=== PATIENT | male | born 1970 | race Caucasian/White ===

== ENCOUNTER 2018-12-05 11:55 | Emergency (ER) | payer BC ==
[2018-12-05] MEDS ORDERED: Ketorolac 30 MG/ML SDV IM ONE (12:15)
[2018-12-05] MEDS ORDERED: Take Home: Amoxicillin/Clavulanate K 875-125 MG Tab, 2 Tab Pack PO ONE (12:17)
[2018-12-05] MEDS ORDERED: Take Home: Ketorolac 10 MG Tab, 4 Tab Pack PO ONE (12:18)
--- NOTE | 2018-12-05 12:27 | EDM.PDOC ---
ED HPI GENERAL MEDICAL PROBLEM - General Chief Complaint: General Stated Complaint: RIGHT SIDE OF FACE HURTS Time Seen by Provider: 12/05/18 12:00 Source of Information: Reports: Patient History Limitations: Reports: No Limitations - History of Present Illness INITIAL COMMENTS - FREE TEXT/NARRATIVE: Patient comes into the emergency department with right facial pain. Patient states that he has had a fracture tooth for some time. He is noted that the last couple days he's had increase dental pain and severe discomfort in his right ear as well. He also had tubes placed in his ears 3 months ago. He denies any fever but has been taken ibuprofen/Aleve for the last 54 hours a help with any of the pain and discomfort. He is also noted that he has foul smelling breath. He denies any vision changes, chest pain, shortness of breath, headache , or nausea vomiting. 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 Right Face/Facial Pain Score (Numeric/FACES): 10 - Related Data Allergies Allergy/AdvReac Type Severity Reaction Status Date / Time No Known Allergies Allergy Verified 12/05/18 12:09 Home Meds: Home Meds Amoxicillin/Potassium Clav [Augmentin 875-125 Tablet] 1 each PO BID #18 tablet 12/05/18 [Rx] Ketorolac [Toradol] 10 mg PO TID PRN #10 tab 12/05/18 [Rx] ED ROS GENERAL - Review of Systems Review Of Systems: See Below Constitutional: Reports: No Symptoms HEENT: Reports: Dental Pain, Ear Discharge, Ear Pain Respiratory: Reports: No Symptoms Cardiovascular: Reports: No Symptoms Endocrine: Reports: No Symptoms GI/Abdominal: Reports: No Symptoms : Reports: No Symptoms Musculoskeletal: Reports: No Symptoms Skin: Reports: No Symptoms Neurological: Reports: No Symptoms Psychiatric: Reports: No Symptoms Hematologic/Lymphatic: Reports: No Symptoms Immunologic: Reports: No Symptoms ED EXAM, GENERAL - Physical Exam Exam: See Below Exam Limited By: No Limitations General Appearance: Alert, WD/WN, No Apparent Distress Ears: Normal External Exam, Normal Canal, Hearing Grossly Normal Ear Exam: Bilateral Ear: Auricle Normal, Canal Normal, TM normal Nose: Normal Inspection Throat/Mouth: Inflammation, Other (dental decay/carries noted on the right upper mouth. no bleeding noted. Gum tissue inflammation. Foul ordor/breath present. ) Respiratory/Chest: No Respiratory Distress, Normal Breath Sounds Cardiovascular: Normal Peripheral Pulses, Regular Rate, Rhythm, No Edema Neurological: Alert, Oriented, Normal Cognition Psychiatric: Normal Affect, Normal Mood Skin Exam: Warm, Dry, Intact, Normal Color Course - Vital Signs Last Recorded V/S: Last Vital Signs Temp 35.8 C 12/05/18 12:00 Pulse 58 L 12/05/18 12:00 Resp 18 12/05/18 12:00 BP 203/99 H 12/05/18 12:00 Pulse Ox 95 12/05/18 12:00 - Orders/Labs/Meds Meds: Medications Discontinued Medications Generic Name Dose Route Start Last Admin Trade Name Freq PRN Reason Stop Dose Admin Amoxicillin/Clavulanate Potassium 1 packet 12/05/18 12:17 12/05/18 12:34 Take Home: Amox/Clavulanate 875-12, 2 Tab Pac PO 12/05/18 12:18 1 packet ONETIME ONE Administration Ketorolac Tromethamine 30 mg 12/05/18 12:15 12/05/18 12:33 Toradol IM 12/05/18 12:16 30 mg ONETIME ONE Administration Ketorolac Tromethamine 1 packet 12/05/18 12:18 12/05/18 12:34 Take Home: Ketorolac 10 Mg, 4 Tab Pack PO 12/05/18 12:19 1 packet ONETIME ONE Administration Departure - Departure Time of Disposition: 12:30 Disposition: Home, Self-Care 01 Clinical Impression: Dental abscess - Discharge Information *PRESCRIPTION DRUG MONITORING PROGRAM REVIEWED*: Not Applicable *COPY OF PRESCRIPTION DRUG MONITORING REPORT IN PATIENT JOHNNY: Not Applicable Prescriptions: Amoxicillin/Potassium Clav [Augmentin 875-125 Tablet] 1 each PO BID #18 tablet Ketorolac [Toradol] 10 mg PO TID PRN #10 tab PRN Reason: Pain Instructions: Dental Abscess Referrals: PCP,Not In Area [Primary Care Provider] - Forms: ED Department Discharge Additional Instructions: 1. rest 2. need to follow up with dentist within the next 2 weeks for further management and extraction may be needed 3. Take antibiotic for full 10 days 4. Take probiotic while on antibiotics to help with GI health 5. Take Toradol as needed for pain 6. Can take Tylenol as needed for pain-alternate between Toradol 7. Activity and diet as tolerated 8. Call with any questions or concerns
== END 2018-12-05 12:39 | disposition home or self-care (01) ==
LOC: VM.ED 11:55
DX: K04.7 Periapical abscess without sinus (principal)
CPT/HCPCS: 96374; 99283-25; A9270-GY; J1885

== ENCOUNTER 2019-06-30 10:32 | Emergency (ER) | payer BC ==
[2019-06-30] MEDS ORDERED: Sodium Chloride 0.9% 10 ML Syringe FLUSH PRN ×2 (10:46→11:38)
[2019-06-30] MEDS ORDERED: Albuterol/Ipratropium 3.0-0.5 MG/3 ML Neb Soln NEB ONE (10:48)
[2019-06-30] MEDS ORDERED: Aspirin 81 MG Tab.Chew PO ONE (11:00)
[2019-06-30 11:37] LABS: ANION GAP 13.8 mmol/L (10-20); CHLORIDE,CL 104 mmol/L (54-184); SODIUM,NA 140 mmol/L (69-191)
--- NOTE | 2019-06-30 11:37 | EDM.PDOC ---
ED HPI GENERAL MEDICAL PROBLEM - General Chief Complaint: Chest Pain Stated Complaint: CHEST DISCOMFORT Time Seen by Provider: 06/30/19 11:05 Source of Information: Reports: Patient History Limitations: Reports: No Limitations - History of Present Illness INITIAL COMMENTS - FREE TEXT/NARRATIVE: Pt. presents to ER with complaints of chest pain and shortness of breath. He states that he has been experiencing it for approx. 3 days. It got worse today when he was shoveling snow. He has had a cough that has been productive of yellowish sputum. He states that he has noticed a wheeze when he takes a deep breath. The discomfort is worse with movement and is respirophasic in nature. Denies any other ill contacts. He also complains of some paresthesia and discomfort in his L arm. He denies any jaw, neck or back pain. He denies any nausea of vomiting. No lightheadedness or palpitations. Pt. states that he smokes half a pack of cigarettes a day and has done so for the past 20+ years. He has a history of "borderline" hypertension but is not currently taking any medications. Pt. states that he called Ask a Nurse yesterday who advised he be seen in ER right away. He felt the pain was secondary to a respiratory infection and decided to come in today after having increased discomfort shoveling. Onset Date: 06/27/19 Quality: Reports: Ache, Burning, Pressure Severity: Moderate Associated Symptoms: Reports: Chest Pain Mid-Sternal Chest Pain Score (Numeric/FACES): 4 - Related Data Allergies Allergy/AdvReac Type Severity Reaction Status Date / Time No Known Allergies Allergy Verified 06/30/19 11:03 Home Meds: Home Meds . [No Known Home Meds] 06/30/19 [History] Past Medical History - Past Surgical History HEENT Surgical History: Reports: Myringotomy w Tube(s) Musculoskeletal Surgical History: Reports: Arthroscopic Knee ED ROS GENERAL - Review of Systems Review Of Systems: See Below Constitutional: Reports: No Symptoms HEENT: Reports: No Symptoms Respiratory: Reports: Shortness of Breath, Wheezing Cardiovascular: Reports: Chest Pain, Dyspnea on Exertion. Denies: Edema, Lightheadedness, Palpitations, Syncope Endocrine: Reports: No Symptoms GI/Abdominal: Reports: No Symptoms : Reports: No Symptoms Musculoskeletal: Reports: No Symptoms Skin: Reports: No Symptoms Neurological: Reports: No Symptoms Psychiatric: Reports: No Symptoms Hematologic/Lymphatic: Reports: No Symptoms Immunologic: Reports: No Symptoms ED EXAM, GENERAL - Physical Exam Exam: See Below Exam Limited By: No Limitations General Appearance: Alert, WD/WN, No Apparent Distress Throat/Mouth: Normal Inspection, Normal Lips, Normal Teeth, Normal Gums, Normal Oropharynx, Normal Voice, No Airway Compromise Head: Atraumatic, Normocephalic Neck: Normal Inspection, Supple, Non-Tender, Full Range of Motion Respiratory/Chest: No Respiratory Distress, Normal Breath Sounds, No Accessory Muscle Use, Wheezing Cardiovascular: Normal Peripheral Pulses, Regular Rate, Rhythm, No Edema, No JVD , No Rub Peripheral Pulses: 4+: Radial (L) GI/Abdominal: Normal Bowel Sounds, Soft, Non-Tender, No Organomegaly, No Distention, No Mass, Pelvis Stable (Male) Exam: Deferred Rectal (Males) Exam: Deferred Back Exam: Normal Inspection, Full Range of Motion Extremities: Normal Inspection, Normal Range of Motion, Non-Tender, No Pedal Edema, Normal Capillary Refill Neurological: Alert, Oriented, CN II-XII Intact, Normal Cognition, Normal Gait, Normal Reflexes, No Motor/Sensory Deficits Psychiatric: Normal Affect, Normal Mood Skin Exam: Warm, Dry, Intact, Normal Color, No Rash EKG INTERPRETATION Rhythm: NSR Naper: Normal P-Wave: Present QRS: Normal ST-T: Normal QT: Normal Course - Vital Signs Last Recorded V/S: Last Vital Signs Temp 36.6 C 06/30/19 10:40 Pulse 59 L 06/30/19 11:05 Resp 16 06/30/19 11:05 BP 174/99 H 06/30/19 11:54 Pulse Ox 99 06/30/19 11:05 - Orders/Labs/Meds Orders: Active Orders 24 hr Category Date Time Status EKG Documentation Completion [RC] STAT Care 06/30/19 10:46 Active RT Aerosol Therapy [RC] ASDIRECTED Care 06/30/19 10:48 Active Heparin Sodium/0.45% NaCl [Heparin 25,000 Units in 1/2 Med 06/30/19 11:45 Ordered NS 500 ML] 25,000 units in 500 ml IV TITRATE Nitroglycerin 25 MG in D5W @ 10 MCG/MIN (250ml) Premix Med 06/30/19 12:15 Ordered Nitroglycerin/D5W [Nitroglycerin 25 MG/D5W 250 ML] 25 mg in 250 ml IV TITRATE Sodium Chloride 0.9% [Saline Flush] Med 06/30/19 10:46 Active 10 ml FLUSH ASDIRECTED PRN Sodium Chloride 0.9% [Saline Flush] Med 06/30/19 11:38 Ordered 10 ml FLUSH ASDIRECTED PRN Peripheral IV Insertion Adult [OM.PC] Routine Oth 06/30/19 10:46 Ordered Peripheral IV Insertion Adult [OM.PC] Routine Oth 06/30/19 11:39 Ordered Medication Orders Heparin Sodium/Sodium Chloride (Heparin 25,000 Units In 1/2 Ns 500 Ml) 25,000 units in 500 mls @ 20 mls/hr IV TITRATE KATINA; Protocol Sodium Chloride (Saline Flush) 10 ml FLUSH ASDIRECTED PRN PRN Reason: Keep Vein Open Sodium Chloride (Saline Flush) 10 ml FLUSH ASDIRECTED PRN PRN Reason: Keep Vein Open Labs: Laboratory Tests 06/30/19 06/30/19 06/30/19 Range/Units 10:52 10:52 10:52 WBC 11.7 H (4.0-10.0) x10^3/uL RBC 5.05 (4.5-6.0) x10^6/uL Hgb 15.5 (14.0-18.0) g/dL Hct 44.3 (40.0-52.0) % MCV 87.7 (78.0-93.0) fL MCH 30.7 (26.0-32.0) pg MCHC 35.0 (32.0-36.0) g/dL RDW Coeff of Jimmy 13.2 (10.0-15.0) % Plt Count 174 (130-400) x10^3/uL Add Manual Diff Yes Neutrophils % (Manual) 75 (50-80) % Band Neutrophils % 1 (0-6) % Lymphocytes % (Manual) 16 L (25-50) % Monocytes % (Manual) 6 (2-11) % Eosinophils % (Manual) 2 (0-4) % Platelet Estimate Adequate Giant Platelets Few H Anisocytosis 1+ slight H PT 11.2 (10.0-12.8) SEC INR 1.0 L (2.0-3.5) APTT (24.0-36.0) SEC D-Dimer, Quantitative 0.28 (<=0.58) mg/LFEU Sodium 140 (69-191) mmol/L Potassium 3.8 (1.5-9.9) mmol/L Chloride 104 (54-184) mmol/L Carbon Dioxide 26 (21-32) mmol/L Anion Gap 13.8 (10-20) mmol/L BUN 16 (7-18) mg/dL Creatinine 1.1 (0.70-1.30) mg/dL Est Cr Clr Drug Dosing TNP Estimated GFR (MDRD) > 60 Glucose 118 H (74-106) mg/dL Calcium 8.6 (8.5-10.1) mg/dL Corrected Calcium 8.84 (8.5-10.1) mg/dL Magnesium 1.8 (1.8-2.4) mg/dL Total Bilirubin 0.5 (0.2-1.0) mg/dL AST 31 (15-37) U/L ALT 49 (16-63) U/L Alkaline Phosphatase 112 (46-116) U/L Troponin I 1.052 H* (<=0.056) ng/mL C-Reactive Protein < 0.2 (<=0.9) mg/dL Total Protein 7.7 (6.4-8.2) g/dL Albumin 3.7 (3.4-5.0) g/dL Globulin 4.0 Albumin/Globulin Ratio 0.93 //19 Range/Units 10:52 WBC (4.0-10.0) x10^3/uL RBC (4.5-6.0) x10^6/uL Hgb (14.0-18.0) g/dL Hct (40.0-52.0) % MCV (78.0-93.0) fL MCH (26.0-32.0) pg MCHC (32.0-36.0) g/dL RDW Coeff of Jimmy (10.0-15.0) % Plt Count (130-400) x10^3/uL Add Manual Diff Neutrophils % (Manual) (50-80) % Band Neutrophils % (0-6) % Lymphocytes % (Manual) (25-50) % Monocytes % (Manual) (2-11) % Eosinophils % (Manual) (0-4) % Platelet Estimate Giant Platelets Anisocytosis PT (10.0-12.8) SEC INR (2.0-3.5) APTT 24.9 (24.0-36.0) SEC D-Dimer, Quantitative (<=0.58) mg/LFEU Sodium (69-191) mmol/L Potassium (1.5-9.9) mmol/L Chloride (54-184) mmol/L Carbon Dioxide (21-32) mmol/L Anion Gap (10-20) mmol/L BUN (7-18) mg/dL Creatinine (0.70-1.30) mg/dL Est Cr Clr Drug Dosing Estimated GFR (MDRD) Glucose (74-106) mg/dL Calcium (8.5-10.1) mg/dL Corrected Calcium (8.5-10.1) mg/dL Magnesium (1.8-2.4) mg/dL Total Bilirubin (0.2-1.0) mg/dL AST (15-37) U/L ALT (16-63) U/L Alkaline Phosphatase (46-116) U/L Troponin I (<=0.056) ng/mL C-Reactive Protein (<=0.9) mg/dL Total Protein (6.4-8.2) g/dL Albumin (3.4-5.0) g/dL Globulin Albumin/Globulin Ratio Meds: Medications Generic Name Dose Route Start Last Admin Trade Name Freq PRN Reason Stop Dose Admin Heparin Sodium/Sodium Chloride 25,000 units in 500 mls @ 20 mls/hr 06/30/19 11 :45 Heparin 25,000 Units In 1/2 Ns 500 Ml IV TITRATE KATINA Protocol 1,000 UNITS/HR Sodium Chloride 10 ml 06/30/19 10:46 Saline Flush FLUSH ASDIRECTED PRN Keep Vein Open Sodium Chloride 10 ml 06/30/19 11:38 Saline Flush FLUSH ASDIRECTED PRN Keep Vein Open Discontinued Medications Generic Name Dose Route Start Last Admin Trade Name Freq PRN Reason Stop Dose Admin Albuterol/Ipratropium 3 ml 06/30/19 10:48 06/30/19 11:01 Duoneb 3.0-0.5 Mg/3 Ml NEB 06/30/19 10:49 3 ml ONETIME ONE Administration Aspirin 324 mg 06/30/19 11:00 06/30/19 11:02 Aspirin PO 06/30/19 11:01 324 mg ONETIME ONE Administration Clopidogrel Bisulfate 300 mg 06/30/19 11:57 Plavix PO 06/30/19 11:58 ONETIME ONE Heparin Sodium (Porcine) 4,000 units 06/30/19 11:39 06/30/19 11:54 Heparin Sodium IVPUSH 06/30/19 11:40 4,000 units .BOLUS ONE Administration Nitroglycerin 0.4 mg 06/30/19 11:39 06/30/19 11:54 Nitrostat SL 06/30/19 11:40 0.4 mg ONETIME ONE Administration - Radiology Interpretation Free Text/Narrative:: chest x-ray is negative - Re-Assessments/Exams Free Text/Narrative Re-Assessment/Exam: Pt. was given aspirin 324mg PO. IV established x 2. He was given heparin 4000U bolus and started on 1000U/hr. drip. Chest pain was decreased with nitro. He was started on a nitro drip. He was given plavix 300mg PO. Departure - Departure Time of Disposition: 12:00 Disposition: DC/Tfer to Acute Hospital 02 Clinical Impression: NSTEMI (non-ST elevated myocardial infarction) - Discharge Information Referrals: PCP,Unknown [Primary Care Provider] - Forms: ED Department Discharge - Problem List Review Problem List Initiated/Reviewed/Updated: Yes - My Orders Last 24 Hours: My Active Orders 06/30/19 10:46 EKG Documentation Completion [RC] STAT Sodium Chloride 0.9% [Saline Flush] 10 ml FLUSH ASDIRECTED PRN Peripheral IV Insertion Adult [OM.PC] Routine 06/30/19 10:48 RT Aerosol Therapy [RC] ASDIRECTED 06/30/19 11:38 Sodium Chloride 0.9% [Saline Flush] 10 ml FLUSH ASDIRECTED PRN 06/30/19 11:39 Peripheral IV Insertion Adult [OM.PC] Routine 06/30/19 11:45 Heparin Sodium/0.45% NaCl [Heparin 25,000 Units in 1/2 NS 500 ML] 25,000 units in 500 ml IV TITRATE 06/30/19 12:15 Nitroglycerin 25 MG in D5W @ 10 MCG/MIN (250ml) Premix Nitroglycerin/D5W [ Nitroglycerin 25 MG/D5W 250 ML] 25 mg in 250 ml IV TITRATE - Assessment/Plan Last 24 Hours: My Active Orders 06/30/19 10:46 EKG Documentation Completion [RC] STAT Sodium Chloride 0.9% [Saline Flush] 10 ml FLUSH ASDIRECTED PRN Peripheral IV Insertion Adult [OM.PC] Routine 06/30/19 10:48 RT Aerosol Therapy [RC] ASDIRECTED 06/30/19 11:38 Sodium Chloride 0.9% [Saline Flush] 10 ml FLUSH ASDIRECTED PRN 06/30/19 11:39 Peripheral IV Insertion Adult [OM.PC] Routine 06/30/19 11:45 Heparin Sodium/0.45% NaCl [Heparin 25,000 Units in 1/2 NS 500 ML] 25,000 units in 500 ml IV TITRATE 06/30/19 12:15 Nitroglycerin 25 MG in D5W @ 10 MCG/MIN (250ml) Premix Nitroglycerin/D5W [ Nitroglycerin 25 MG/D5W 250 ML] 25 mg in 250 ml IV TITRATE Plan: Pt. will be transferred to [facility]. I spoke with Dr. Nunez who accepts the patient in transfer. He will be transported via [facility] ground ambulance. All questions were answered.
[2019-06-30] MEDS ORDERED: Nitroglycerin 0.4 MG Tab.SL SL ONE (11:39)
[2019-06-30] MEDS ORDERED: Heparin Sodium 5,000 Units/ML Vial IVPUSH ONE (11:39)
[2019-06-30] MEDS ORDERED: Heparin Sodium/0.45% NaCl 25,000 UNITS/500 ML BAG IV SCH (11:45)
--- NOTE | 2019-06-30 11:45 | CR ---
[id number] RAD/RAD Chest PA And Lateral EXAM: RAD Chest PA And Lateral INDICATION: SYNCOPE, BRADYCARDIA COMPARISON: None. DISCUSSION: Cardiomediastinal silhouette is stable in size and contour. No infiltrate, effusion, pneumothorax, or edema. IMPRESSION: No acute cardiopulmonary abnormality. Benito Adam DO 06/30/19 1144 Thank you for allowing us to participate in the care of your patient.
[2019-06-30] MEDS ORDERED: Clopidogrel 75 MG Tab PO ONE (11:57)
[2019-06-30] MEDS ORDERED: Nicotine 14 MG/24 Hr Patch TRDERM ONE (12:07)
[2019-06-30] MEDS ORDERED: Nitroglycerin/D5W 25 MG/250 ML BOTTLE IV SCH (12:15)
== END 2019-06-30 12:30 | disposition short-term general hospital (02) ==
LOC: VM.ED 10:32
DX: I21.4 Non-ST elevation (NSTEMI) myocardial infarction (principal)
CPT/HCPCS: 71046; 80053; 83735; 84484; 85025; 85379; 85610; 85730; 86140; 93005; 94640; 96365; 96368; 96375; 99285-25; A9270-GY; J1644; J3490; J7620-GY

== ENCOUNTER 2023-07-08 14:04 | Emergency (ER) | payer BC | END 2023-07-08 15:15 | disposition home or self-care (01) | LOC: VM.ED 14:04 | DX: U07.1 COVID-19 (principal) | CPT/HCPCS: 99284 ==

== ENCOUNTER 2023-07-10 11:46 | Emergency (ER) | payer BC ==
[2023-07-10 12:35] LABS: BASOPHILS PERCENT AUTO 0.2 % (0.2-1.2); EOSINOPHILS PERCENT AUTO 0.1 % (0.0-4.0); HEMATOCRIT 43.9 % (40.0-52.0); HEMOGLOBIN 14.9 g/dL (14.0-18.0); IMMATURE GRAN ABSOLUTE AUTO 0.02 x10^3/uL (0.00-0.07); LYMPHOCYTES ABSOLUTE AUTO 1.1 x10^3/uL (1.0-4.8); LYMPHOCYTES PERCENT AUTO 11.3 % (25.0-50.0); MEAN CORPUSCULAR HEMOGLOBIN 29.9 pg (26.0-32.0); MEAN CORPUSCULAR HGB CONC 33.9 g/dL (32.0-36.0); MEAN CORPUSCULAR VOLUME 88.2 fL (78.0-93.0); MONOCYTES ABSOLUTE AUTO 0.5 x10^3/uL (0.0-0.8); MONOCYTES PERCENT AUTO 4.8 % (2.0-11.0); NEUTROPHILS ABSOLUTE AUTO 8.1 x10^3/uL (1.8-7.7); NEUTROPHILS PERCENT AUTO 83.4 % (50.0-80.0); PLATELET COUNT,PLT 173 x10^3/uL (130-400); RED BLOOD CELL COUNT 4.98 x10^6/uL (4.5-6.0); WHITE BLOOD CELL COUNT,WBC 9.7 x10^3/uL (4.0-10.0)
[2023-07-10 12:59] LABS: A/G RATIO 0.95; ALANINE AMINOTRANSFERASE,ALT 46 U/L (16-63); ALBUMIN 3.5 g/dL (3.4-5.0); ALKALINE PHOSPHATASE 100 U/L (46-116); ASPARTATE AMNIOTRANSFERASE,AST 23 U/L (15-37); BILIRUBIN TOTAL 0.3 mg/dL (0.2-1.0); BLOOD UREA NITROGEN,BUN 22 mg/dL (7-18); C-REACTIVE PROTEIN 0.06 mg/dL (<=0.30); CALCIUM 8.7 mg/dL (8.5-10.1); CARBON DIOXIDE,CO2 31 mmol/L (21-32); CHLORIDE,CL 102 mmol/L (98-107); CREATININE 1.2 mg/dL (0.70-1.30); GLUCOSE RANDOM 149 mg/dL (70-99); PROTEIN TOTAL,TP 7.2 g/dL (6.4-8.2); SODIUM,NA 141 mmol/L (136-145)
[2023-07-10 13:04] LABS: ESTIMATED GFR 71 mL/min (>=60)
== END 2023-07-10 13:43 | disposition home or self-care (01) ==
LOC: VM.ED 11:46
DX: U07.1 COVID-19 (principal); E78.00 Pure hypercholesterolemia, unspecified; I50.9 Heart failure, unspecified; I25.2 Old myocardial infarction; F17.200 Nicotine dependence, unspecified, uncomplicated; Z86.16 Personal history of COVID-19; Z79.899 Other long term (current) drug therapy
CPT/HCPCS: 36415; 71045; 80053; 83880; 84484; 85025; 86140; 93005; 99285